=== PATIENT | male | born 1990 | race African-American/Black ===

== ENCOUNTER 2023-09-16 09:41 | Emergency (ER) | payer SELFPAY ==
[~2023-09-16] VITALS: Ht 190.5 cm; Wt 106.8 kg
[2023-09-16 09:54] VITALS: TEMP 97.8
[2023-09-16] MEDS: ACETAMINOPHEN 500 MG TABLET PO ONE (10:30)
[2023-09-16] MEDS ORDERED: ACET-3385 PO (10:30)
[2023-09-16] MEDS: BACITRACIN 0.9 GM PACKET OINTMENT TP ONE (10:30)
[2023-09-16] MEDS ORDERED: DOXY-354 PO (10:30)
[2023-09-16] MEDS ORDERED: BACI28.410 TP (10:30)
[2023-09-16] MEDS: DOXYCYCLINE HYCLATE 100 MG TABLET PO ONE (10:33)
[2023-09-16 11:05] VITALS: BP 119/71; PULSE 71; RESP 14
== END 2023-09-16 11:25 | disposition home or self-care (01) ==
LOC: EMS 09:43
DX: S61.211A Laceration without foreign body of left index finger without damage to nail, initial encounter (principal); W31.89XA Contact with other specified machinery, initial encounter; Y93.89 Activity, other specified; Y92.89 Other specified places as the place of occurrence of the external cause; Y99.8 Other external cause status
CPT/HCPCS: 99284; Z7502; Z7610